=== PATIENT | male | born 1995 | race African-American/Black ===

== ENCOUNTER 2023-08-10 16:39 | Emergency (ER) | payer SELFPAY ==
[2023-08-10] MEDS ORDERED: Acetaminophen 500 MG TAB ONE (17:21)
[2023-08-10] MEDS ORDERED: Ketorolac Tromethamine 30 MG (1 mL) VIAL ONE (17:21)
[2023-08-10] MEDS ORDERED: Bicillin LA 1.2 MILLION UNITS/2 ML SYRINGE ONE (17:23)
[2023-08-10] MEDS ORDERED: Dexamethasone 4 MG TAB ONE ×2 (17:23→17:46)
[2023-08-10] MEDS ORDERED: Ondansetron ODT 4 MG TAB ONE (17:37)
== END 2023-08-10 19:20 | disposition home or self-care (01) ==
LOC: ERS 16:39
DX: J02.0 Streptococcal pharyngitis (principal)
CPT/HCPCS: 96372; 99283; J0561; J1885; J8540; Q0162

== ENCOUNTER 2023-08-11 12:42 | Emergency (ER) | payer SELFPAY ==
[2023-08-11] MEDS ORDERED: Dexamethasone 10 MG/ML VIAL ONE (14:00)
[2023-08-11] MEDS ORDERED: Ketorolac Tromethamine 30 MG (1 mL) VIAL ONE (14:00)
[2023-08-11 16:17] LABS: Influenza A by NAA Not Detected (NotDetected); Influenza B by NAA Not Detected (NotDetected); SARS-CoV-2 NAA Rapid Test Not Detected (NotDetected)
[2023-08-11 17:20] LABS: #Monocytes 0.4 thou/uL (0.11-0.59); #Neutrophils 6.9 thou/uL (1.40-6.50); %Basophils 0.1 % (0.0-1.0); %Lymphocytes 8.4 % (21.0-51.0); %Monocytes 5.4 % (0.0-10.0); %Neutrophils 85.7 % (42.0-75.0); Hematocrit 41.3 % (42.0-52.0); Hemoglobin 13.4 g/dL (14.0-18.0); Mean Corpuscular HGB CONC 32.4 g/dL (32.0-36.0); Mean Corpuscular Hemoglobin 27.5 pg (27.0-31.0); Mean Corpuscular Volume 84.6 fl (78.0-98.0); Mean Platelet Volume 9.8 fL (7.4-10.4); Platelet Count 194 10x3/uL (130-400); RBC Distribution Width 13.5 % (11.5-14.5); Red Blood Cell (RBC) Count 4.88 mill/uL (4.70-6.10)
[2023-08-11 17:43] LABS: ALT (SGPT) 18 U/L (8-55); AST (SGOT) 20 U/L (5-34); Albumin 4.1 g/dL (3.5-5.0); Alkaline Phosphatase 61 U/L (40-110); Anion Gap 15 mmol/L (10-20); BUN (Urea Nitrogen) 35 mg/dL (8.9-20.6); Bilirubin, Total 0.7 mg/dL (0.2-1.2); Calc. Creatinine Clearance 0 mL/min (70-130); Calcium 9.2 mg/dL (7.8-10.44); Carbon Dioxide 24 mmol/L (22-29); Chloride 106 mmol/L (98-107); Estimated GFR 113; Globulin 4.2 g/dL (2.4-3.5); Glucose 115 mg/dL (70-105); Protein, Total 8.3 g/dL (6.0-8.3); Sodium 141 mmol/L (136-145)
== END 2023-08-11 18:34 | disposition home or self-care (01) ==
LOC: ERS 12:42
DX: J03.90 Acute tonsillitis, unspecified (principal); Z55.6 Problems related to health literacy
CPT/HCPCS: 36415; 70491; 80053; 83605; 85025; 87081; 87430; 96361; 96374; 96375; J1100; J1885